=== PATIENT | male | born 1995 | race Caucasian/White ===

== ENCOUNTER 2017-04-23 07:40 | Emergency (ER) | payer OTHER ==
[2017-04-23 07:51] VITALS: BP 138/87; TEMP 97; O2SAT 97
[2017-04-23] MEDS ORDERED: methylPREDNISolone SODIUM SUC 125 MG/2 ML VIAL IV ONE (07:53)
[2017-04-23] MEDS ORDERED: diphenhydrAMINE HCL 12.5 MG/5 ML UD PO ONE (07:53)
[2017-04-23] MEDS ORDERED: methylPREDNISolone SODIUM SUC 125 MG/2 ML VIAL IM ONE (07:55)
--- NOTE | 2017-04-23 07:56 | ED.PDOC ---
History of Present Illness - General Chief Complaint: ENT Problem Stated Complaint: my uvula is swollen Time Seen by Provider: 04/23/17 07:50 Source: patient, RN notes reviewed, Vital Signs reviewed Exam Limitations: no limitations - History of Present Illness Initial Comments: Patient comes into the ER with c/o sore throat and swollen uvula. First noticed when he awoke this morning. Denies any other symptoms. Denies any new or unusual foods yesterday. No similar episodes in the past. Timing/Duration: abrupt, this morning Severity: moderate EENT Location: throat Prearrival Treatment: no prearrival treatment Improving Factors: nothing Worsening Factors: nothing Associated Symptoms: voice change Allergies/Adverse Reactions: Allergies NO KNOWN ALLERGY Allergy (Verified 04/23/17 07:51) Home Medications: Ambulatory Orders Azithromycin Tab [Zithromax] 500 mg PO DAILY #10 tab 04/23/17 Review of Systems - Review of Systems Constitutional: States: no symptoms reported. Denies: chills, fever, malaise EENTM: States: see HPI, throat swelling. Denies: ear pain, nose pain, nose congestion Respiratory: States: no symptoms reported. Denies: cough, short of breath Cardiology: States: no symptoms reported Gastrointestinal/Abdominal: States: no symptoms reported Musculoskeletal: States: no symptoms reported Skin: States: no symptoms reported Neurological: States: no symptoms reported All other Systems: No Change from Baseline Past Medical History (General) - Patient Medical History Hx Asthma: No Surgical History: no surgical history - Vaccination History Hx Influenza Vaccination: No - Social History Hx Tobacco Use: Yes - occasionally smokes a cigar Family Medical History - Family History Father Family History: Unknown Living Status: Unknown Physical Exam - Physical Exam General Appearance: Alert, Comfortable, No apparent distress, Obese, Well Developed, Well Groomed, Well Hydrated, Well Nourished Eye Exam: bilateral normal Ear Exam: bilateral ear: auricle normal Nasal Exam: normal inspection Throat Exam: pharynx swelling, uvula swelling, voice changes - muffled voice Neck: non-tender, full range of motion, supple, normal inspection, trachea midline Cardiovascular/Respiratory: regular rate, rhythm, no M/R/G, normal breath sounds , no respiratory distress Neurologic: alert, normal mood/affect, oriented x 3 Skin Exam: normal color, warm/dry Progress - Progress Progress: 04/23/17 07:57 Will give Benadryl 25mg PO and Solu-Medrol 125mg IM - Results/Orders Results/Orders: Laboratory Tests 04/23/17 07:53 Group A Strep DNA Positive Departure - Departure Clinical Impression: Streptococcal sore throat Time of Disposition: 08:19 Disposition: Discharge to Home or Self Care Condition: Good Departure Forms: ED Discharge - Pt. Copy, Patient Portal Self Enrollment, Work Release Form Instructions: DI for Strep Throat Diet: resume usual diet Activity: increase activity as tolerated Prescriptions: Azithromycin Tab [Zithromax] 500 mg PO DAILY #10 tab Home Medications: Ambulatory Orders Azithromycin Tab [Zithromax] 500 mg PO DAILY #10 tab 04/23/17
== END 2017-04-23 08:25 | disposition home or self-care (01) ==
LOC: ER 07:40
DX: J02.0 Streptococcal pharyngitis (principal); F17.290 Nicotine dependence, other tobacco product, uncomplicated
CPT/HCPCS: 87651; J2930; Q0163